=== PATIENT | male | born 1990 | race Two or more races ===

== ENCOUNTER 2024-09-30 20:06 | Emergency (ER) | payer SELFPAY ==
[~2024-09-30] VITALS: Ht 154.9 cm; Wt 72.7 kg
[2024-09-30 20:08] VITALS: BP 130/84; PULSE 109; RESP 14; O2SAT 99
[2024-09-30 20:56] VITALS: TEMP 98.4
== END 2024-09-30 20:56 | disposition home or self-care (01) ==
LOC: ER 20:07
DX: Z02.89 Encounter for other administrative examinations (principal); M25.522 Pain in left elbow; V99.XXXA Unspecified transport accident, initial encounter; Y93.89 Activity, other specified; Y92.89 Other specified places as the place of occurrence of the external cause; Y99.8 Other external cause status
CPT/HCPCS: 73080; 99283